=== PATIENT | male | born 1990 | race African-American/Black ===

== ENCOUNTER 2019-08-01 15:20 | Emergency (ER) | payer SELFPAY ==
[~2019-08-01] VITALS: Ht 190.5 cm; Wt 105.2 kg
[2019-08-01 16:00] VITALS: BP 113/69
[2019-08-01] MEDS ORDERED: IBUPROFEN 800 MG TAB PO ONE (17:00)
== END 2019-08-01 17:24 ==
LOC: ER 15:20
DX: S86.012A Strain of left Achilles tendon, initial encounter (principal); S93.402A Sprain of unspecified ligament of left ankle, initial encounter; X58.XXXA Exposure to other specified factors, initial encounter; Y93.67 Activity, basketball; Y92.89 Other specified places as the place of occurrence of the external cause; Y99.8 Other external cause status
CPT/HCPCS: 29515; 73610